=== PATIENT | male | born 1995 | race Caucasian/White ===

== ENCOUNTER 2022-04-26 07:18 | Emergency (ER) | payer OTHER, SELFPAY ==
[2022-04-26 07:22] VITALS: BP 136/68; PULSE 119; RESP 18; TEMP 37.3; O2SAT 97; BMI 33.5
--- NOTE | 2022-04-26 07:22 | ED_ITS ---
HPI - Fever General Chief Complaint: Upper Respiratory Symptoms Stated Complaint: Fever Chills Headache Time Seen by Provider: 04/26/22 07:21 Source: patient Mode of arrival: ambulatory Limitations: no limitations History of Present Illness HPI Narrative: One day of fever and chills. Patient also with headache and cough and nausea. MD elicited complaint: fever Onset (ago): day(s) Exacerbating factors: nothing Relieving factors: nothing Associated symptoms: chills, myalgias, headache, rhinorrhea, sore throat and cough Related Data Allergies Allergy/AdvReac Type Severity Reaction Status Date / Time No Known Allergies Allergy Verified 04/26/22 07:25 [No Known Allergies*] Review of Systems Review of Systems: Yes all other systems are reviewed and are negative Neurologic: Denies Sensory deficit (Neuro) [facility] Social History Social History Advance Directives: No Physical Exam Vital Signs: Vital Signs: Last Vital Signs Temp 99.2 F 04/26/22 07:33 Pulse 109 H 04/26/22 07:33 Resp 20 04/26/22 07:33 BP 139/74 04/26/22 07:33 Pulse Ox 99 04/26/22 07:33 O2 Del Method 04/26/22 07:33 BMI result Body Mass Index 33.5 Const: General: healthy appearing Nutritional Appearance: average body habitus Orientation/consciousness: oriented to person and patient oriented x3 Limitations: no limitations HEENT: Head: Yes normal to inspection Ears: external ears normal General nose exam: Normal external nose present Mouth: Normal oral and palatal mucosa present and oropharynx normal Throat: Yes posterior oropharynx normal Eyes: General: appearance normal, both eyes and all related structures Neck: Other: supple Neck: Yes normal visual inspection Chest: Chest palpation & inspection: normal inspection of the chest Resp: Auscultation: clear to auscultation bilaterally Cardio: Jugular venous distension: no JVD Rate: regular rate Rhythm: regular rhythm Heart sounds: S1 normal heart sound present and S2 normal heart sound present GI: Inspection: Yes normal to inspection Palpation (GI): Soft to palpation, nontender and No hepatosplenomegaly present Auscultation: normal bowel sounds : General: Yes no CVA tenderness Back/Spine/Pelvis: Back: no CVA tenderness Skin: General skin exam: no rashes or lesions noted Neuro: General: oriented to person and patient oriented x3 Cranial nerves: Yes CN's II-XII intact bilaterally Motor exam (neuro): 5/5 motor strength present throughout Sensory Exam: No Sensory deficit (Neuro) Extrem: General: Yes normal to inspection Psych: Appearance: grossly normal Course Reevaluation(s) Reevaluation #1: Patient with the flu will dc home Time: 08:41 Medications Administered Discontinued Medications Generic Name Dose Route Start Last Admin Trade Name Freq PRN Reason Stop Dose Admin Ibuprofen 800 mg 04/26/22 07:25 04/26/22 07:38 Ibuprofen 800 Mg Tablet PO 04/26/22 07:26 800 mg ONCE ONE Administration MDM - Fever Lab Data Labs: Lab Results 04/26/22 Range/Units 07:32 Influenza Type A (PCR) POSITIVE A (Negative) Influenza Type B (PCR) NEGATIVE (Negative) RSV RNA Qual (PCR) NEGATIVE (Negative) SARS-CoV-2 RNA (RT-PCR) NEGATIVE (Negative) Discharge Plan Discharge Clinical Impression: Influenza A Patient Disposition: Home, Self-Care Instructions: Influenza (ED) Referrals: Physician,Maryam J [Primary Care Provider] - 1 week
[2022-04-26 07:33] VITALS: BP 139/74; PULSE 109; RESP 20; TEMP 37.3; O2SAT 99
[2022-04-26] MEDS: Ibuprofen 800 MG TABLET PO (07:38)
--- OUTSIDE RECORDS SUMMARY | 2022-04-26 07:39 | XMS_ITS | Continuity of Care Document ---
:1995 Author Organization [facility] Address [address] [place] [address]- Care Team Providers Name Role Phone Not on Staff, PCP Primary Care Physician Unavailable Encounter [facility] Date(s): 07/29/19 - 08/05/19 [facility] [address] [place] [address]- [facility] Encounter Diagnosis Gastroenteritis (Discharge Diagnosis) - 07/29/19 Attending Physician: Valente Welsh MD Referring Physician: Valente Welsh MD Allergies, Adverse Reactions, Alerts Substance Reaction Severity Status NKA Active Medications Zofran 8 mg oral tablet 1 tablet = 8 mg, By Mouth, Every 8 hours, PRN Nausea & Vomiting, # 10 tablet, 0 Refills, Maintenance, 07/29/19 16:49:00 EST, Tablet, [id number], 172, cm, 07/29/19 16:13:00 EST, Height, 92, kg, 07/29/19 16:13:00 EST, Dry Weight Start Date: 07/29/19 Status: Ordered Problem List Diagnosis Diagnosis Type Effective Dates Health Status Clinical In formant Service Gastroenteritis Discharge 07/29/19 Diagnosis Vital Signs Most recent to oldest [Reference Range]: 1 Height 172 cm (07/29/19 4:13 PM) Weight 92.0 kg (07/29/19 4:13 PM) Oxygen Saturation [94-100 %] 98 % (07/29/19 4:13 PM) Pulse Rate [55-90 bpm] 91 bpm *H* (07/29/19 4:13 PM) Body Mass Index [18.5-24.99] 31.1 *>HHI* (07/29/19 4:13 PM) Blood Pressure [90-138/55-84 mm Hg] 143/72 mm Hg *H* (07/29/19 4:13 PM) Respiratory Rate [16-30 br/min] 19 br/min (07/29/19 4:13 PM) Temperature [96.8-100.4 DegF] 98.9 DegF (07/29/19 4:13 PM) Mode of Delivery (Oxygen) Room air (07/29/19 4:13 PM) Blood pressure sites Arm, right (07/29/19 4:13 PM) Temperature Route Oral (07/29/19 4:13 PM) Dry Weight 92.0 kg (07/29/19 4:13 PM) Weight Obtained Via Standing scale (07/29/19 4:13 PM) Dry Weight Obtained Via Standing scale (07/29/19 4:13 PM) Social History Social History Type Response Smoking Status Current some day smoker; Oth er: Marijuana on occasion; entered on: 12/23/17 Sex
--- OUTSIDE RECORDS SUMMARY | 2022-04-26 07:39 | XMS_ITS | Continuity of Care Document ---
:1995 Author Organization [facility] Address [address] [place] [address]- Care Team Providers Name Role Phone Not on Staff, PCP Primary Care Physician Unavailable Encounter [facility] Date(s): 07/29/19 - 08/08/19 [facility] [address] [place] [address]- [facility] Attending Physician: Amara Hudson Admitting Physician: AdmAmara umaña Referring Physician: Admtr, ArCrista Allergies, Adverse Reactions, Alerts Substance Reaction Severity Status NKA Active Medications Zofran 8 mg oral tablet 1 tablet = 8 mg, By Mouth, Every 8 hours, PRN Nausea & Vomiting, # 10 tablet, 0 Refills, Maintenance, 07/29/19 16:49:00 EST, Tablet, [facility] #[id number], 172, cm, 07/29/19 16:13:00 EST, Height, 92, kg, 07/29/19 16:13:00 EST, Dry Weight Start Date: 07/29/19 Status: Ordered Social History Social History Type Response Smoking Status Current some day smoker; Oth er: Marijuana on occasion; entered on: 12/23/17 Sex
--- OUTSIDE RECORDS SUMMARY | 2022-04-26 07:39 | XMS_ITS | Continuity of Care Document ---
:1995 Author Organization [facility] Address [address] [place] [address]- Care Team Providers Name Role Phone Not on Staff, PCP Primary Care Physician Unavailable Encounter [facility] Date(s): 07/10/21 - 07/10/21 [facility] [address] [place] [id number]- Encounter Diagnosis Gastroenteritis (Final) - 07/10/21 Nausea (Final) - 07/10/21 Vomiting (Final) - 07/10/21 Discharge Disposition: A-D/C Home Attending Physician: Brenda Coffman MD Admitting Physician: Brenda Coffman MD Referring Physician: Not on Staff, Referring MD Allergies, Adverse Reactions, Alerts No Known Allergies Medications Carafate 1 gm oral tablet 1 Gm, 1, tablet, By Mouth, 2 times a day, # 60 tablet, Refills 0, Tot. Refills 0, Maintenance, 07/10/21 23:36:00 EST, Route to Pharmacy Electronically, [facility] #[id number], Partial fill upon patient request if the prescription is for a schedul... Start Date: 07/10/21 Status: OrderedZofran 4 mg oral tablet 1 tablet = 4 mg, By Mouth, Every 8 hours, PRN Nausea & Vomiting, # 10 tablet, 0 Refills, Maintenance, 07/10/21 22:50:00 EST, Tablet, [facility] #[id number], Partial fill upon patient request if the prescription is for a schedule II opioid drug.,... Start Date: 07/10/21 Status: OrderedZofran 8 mg oral tablet 1 tablet = 8 mg, By Mouth, Every 8 hours, PRN Nausea & Vomiting, # 10 tablet, 0 Refills, Maintenance, 07/29/19 16:49:00 EST, Tablet, [facility] #[id number], 172, cm, 07/29/19 16:13:00 EST, Height, 92, kg, 07/29/19 16:13:00 EST, Dry Weight Start Date: 07/29/19 Status: Ordered Vital Signs Most recent to oldest [Reference 1 2 3 Range]: Oxygen Saturation [94-100 %] 99 % 99 % 99 % (07/10/21 10:25 PM) (07/10/21 8:52 PM) (07/10/21 7:16 PM) Pulse Rate [55-90 bpm] 88 bpm 98 bpm 111 bpm (07/10/21 10:25 PM) *H* *H* (07/10/21 8:52 PM) (07/10/21 7:16 PM ) Blood Pressure [90-138/55-84 mm 125/67 mm Hg 110/50 mm Hg 138/69 mm Hg Hg] (07/10/21 10:25 PM) (07/10/21 8:52 PM) (07/10/21 7:16 PM) Respiratory Rate [16-30 br/min] 18 br/min 20 br/min 20 br/min (07/10/21 10:25 PM) (07/10/21 8:52 PM) (07/10/21 7:16 PM) Temperature [96.8-100.4 DegF] 98.5 DegF (07/10/21 6:07 PM) Mode of Delivery (Oxygen) Room air Room air Room a ir (07/10/21 10:25 PM) (07/10/21 8:52 PM) (07/10/21 7:16 PM) Blood pressure sites Arm, left (07/10/21 6:07 PM) Temperature Route Oral (07/10/21 6:07 PM) Social History Social History Type Response Smoking Status Current some day smoker; Oth er: Marijuana on occasion; entered on: 12/23/17 Sex
[2022-04-26 08:17] LABS: Influenza A PCR POSITIVE (Negative); Influenza B PCR NEGATIVE (Negative); Resp Syncy Virus RNA Qual PCR NEGATIVE (Negative); SARS COV2 PCR INHOUSE NEGATIVE (Negative)
== END 2022-04-26 09:02 | disposition home or self-care (01) ==
PROVIDERS: Emergency Provider Emergency Medicine
DX: J10.1 Influenza due to other identified influenza virus with other respiratory manifestations (principal); R50.9 Fever, unspecified; R05.9 Cough, unspecified; R51.9 Headache, unspecified; M79.10 Myalgia, unspecified site; Z20.822 Contact with and (suspected) exposure to COVID-19
CPT/HCPCS: 0241U; 99283

== ENCOUNTER 2023-06-30 08:36 | Emergency (ER) | payer OTHER, SELFPAY ==
[2023-06-30 08:37] VITALS: BP 148/79; PULSE 98; RESP 18; TEMP 36.6; O2SAT 97; BMI 16.5
--- NOTE | 2023-06-30 08:52 | ED.GENADULT ---
HPI - General Adult General Chief complaint: General Medical Stated complaint: cold like symptoms Time Seen by Provider: 06/30/23 08:52 History of Present Illness HPI narrative: The patient is a 27-year-old male who is generally in good health. He has felt worse than usual over the last 2 days. He describes a right posterior headache associated with right ear pain and runny nose and a sore throat. He is felt hot and chilled but has had no definite fever. He feels lightheaded when he stands up. He has been taking DayQuil. No significant cough. No urinary symptoms. No abdominal pain. No nausea or vomiting. Related Data Previous Rx's Medication Instructions Recorded ibuprofen 600 mg tablet 600 mg PO Q6H PRN fever or pain 06/30/23 #20 tabs Allergies Allergy/AdvReac Type Severity Reaction Status Date / Time No Known Allergies Allergy Verified 06/30/23 08:41 [No Known Allergies*] Review of Systems Review of Systems: Yes all other systems are reviewed and are negative [facility] Social History Social History Advance Directives: No Physical Exam ED Vital Signs: Vital Signs - 24 hr 06/30/23 08:37 Temperature 97.9 F Pulse Rate 98 Respiratory Rate 18 Blood Pressure 148/79 H Pulse Oximetry 97 Oxygen Delivery Method Room Air BMI result Body Mass Index 16.5 Const Other: The patient is awake and alert. He is pleasant cooperative. He looks as if he is ordinarily in good health and does not appear obviously acutely ill today. HENMT Other: The appearance of the face is unremarkable. There is some generalized tenderness in the region of the right mastoid process. No erythema to the overlying skin. Tympanic membranes and ear canals are normal bilaterally. Pharynx shows minimal erythema. No asymmetry. Mucous membranes are moist. Ears: external ears normal, TM's normal bilaterally and EAC's normal Eyes General: appearance normal, both eyes and all related structures Alignment and Position: alignment normal Periorbital: periorbital findings normal Eyelids: Yes eyelids normal Conjunctivae: conjunctivae normal Pupils: Equal, round and reactive pupils present EOM: EOMs intact bilaterally Neck Other: The neck is supple. No discrete lymph nodes palpated Resp Effort & Inspection: normal respiratory effort Auscultation: clear to auscultation bilaterally Cardio Rate: regular rate Rhythm: regular rhythm Heart sounds: S1 normal heart sound present and S2 normal heart sound present Skin Other: Skin is warm and dry. No lesions. Neuro Other: The patient is awake, alert, oriented, appropriate. Demeanor is cheerful and pleasant. Neck is supple. Patient is grossly neurologically intact. Cranial nerves: Yes Equal, round and reactive pupils present Extrem Other: No peripheral edema Medications Administered Discontinued Medications Generic Name Dose Route Start Last Admin Trade Name Freq PRN Reason Stop Dose Admin Ibuprofen 600 mg 06/30/23 09:04 06/30/23 09:53 Ibuprofen 600 Mg Tablet PO 06/30/23 09:05 600 mg ONCE ONE Administration Medical Decision Making Medical Decision Making MDM Narrative: The patient is a 27-year-old male who presents with headache, sore throat, and congestion. His presentation is suggestive of viral syndrome. He has tested positive for RSV. He has 2 small children at home. He has been told that he needs to isolate himself from his small children so that he does not expose them to his viral illness. Otherwise he will be treated symptomatically. I have prescribed ibuprofen. He should stay in touch with his PCP's office. Lab Data Labs: Lab Results 06/30/23 Range/Units 09:14 Influenza Type A (PCR) NEGATIVE (Negative) Influenza Type B (PCR) NEGATIVE (Negative) RSV RNA Qual (PCR) POSITIVE A (Negative) SARS-CoV-2 RNA (RT-PCR) NEGATIVE (Negative) S. pyogenes GrpA CHARLY Negative (Negative) Discharge Plan Discharge Clinical Impression: Respiratory syncytial virus (RSV) Patient Disposition: Home, Self-Care Instructions: Respiratory Syncytial Virus (ED) Additional Instructions: You tested positive today for a virus called RSV (respiratory syncytial virus). There is no particular treatment for this virus. It essentially causes symptoms similar to the flu or a very bad cold. You may use ibuprofen and acetaminophen as needed for symptoms. I have sent a prescription for ibuprofen to your pharmacy. It is very important that you try to prevent your children from being exposed to you while you are ill. If small children develop RSV they can become more sick than grownups would get from RSV. Please stay in touch with your regular doctors office for additional advice as needed. Return to the emergency room if worse. Prescriptions: New ibuprofen 600 mg tablet 600 mg PO Q6H PRN (Reason: fever or pain) Qty: 20 0RF Referrals: Jaspal Canela MD [Physician] -
[2023-06-30 09:39] LABS: IDNOW Serial# 08D9AD1C; Strep A Nucleic Acid Negative (Negative)
[2023-06-30] MEDS: Ibuprofen 600 MG TABLET PO (09:53)
[2023-06-30 10:10] LABS: Influenza A PCR NEGATIVE (Negative); Influenza B PCR NEGATIVE (Negative); Resp Syncy Virus RNA Qual PCR POSITIVE (Negative); SARS COV2 PCR INHOUSE NEGATIVE (Negative)
[2023-06-30 11:26] VITALS: BP 141/79; PULSE 91; RESP 18; TEMP 37.1; O2SAT 96
== END 2023-06-30 11:36 | disposition home or self-care (01) ==
PROVIDERS: Emergency Provider Emergency Medicine
DX: R51.9 Headache, unspecified (principal); J02.9 Acute pharyngitis, unspecified; B97.4 Respiratory syncytial virus as the cause of diseases classified elsewhere; Z11.52 Encounter for screening for COVID-19; Z20.828 Contact with and (suspected) exposure to other viral communicable diseases
CPT/HCPCS: 0241U; 87651; 99283; 99284

== ENCOUNTER 2023-07-01 03:19 | Emergency (ER) | payer OTHER, SELFPAY ==
--- NOTE | ~2023-07-01 | CT_ITS ---
EXAMINATION: CT HEAD WITHOUT CONTRAST CLINICAL INFORMATION: Headache. COMPARISON: None available. TECHNIQUE: Contiguous axial imaging was performed from the skull base to vertex without intravenous administration of contrast. This CT examination was performed using dose optimization techniques as appropriate, variously including the following: *Automated exposure control *Adjustment of mA and/or kV according to patient size (this includes techniques or standardized protocols for targeted exams where dose is matched to indication/reason for exam; i.e. extremities or head) *Use of iterative reconstruction technique DLP: 1009.2 mGy-cm FINDINGS: There is no evidence of acute intracranial hemorrhage or territorial infarction. No abnormal mass-effect or midline shift is seen. Gregorio to white matter differentiation is well preserved. No extra-axial fluid collections are identified. The ventricles are normal in size. There is no abnormal attenuation within the brain parenchyma. The osseous structures and soft tissues are normal. There is opacification of several of the ethmoid air cells and mucosal thickening in the maxillary sinuses. The sphenoid sinus and mastoid air cells are well aerated. The frontal sinuses aplastic. The mastoid air cells and visualized portions of the paranasal sinuses are well-aerated. CT/CT head/brain wo IV con IMPRESSION: * No acute intracranial pathology. * Mild sinus disease.
[2023-07-01 03:27] VITALS: BP 146/93; PULSE 82; RESP 16; TEMP 36.7; O2SAT 96; BMI 35.9
[2023-07-01] MEDS: Ibuprofen 600 MG TABLET PO (04:44)
[2023-07-01 05:42] VITALS: BP 122/69; PULSE 96; RESP 17; TEMP 36.4; O2SAT 98
--- NOTE | 2023-07-01 07:35 | ED_ITS ---
HPI - Headache General Chief Complaint: Headache Stated Complaint: gen med Time Seen by Provider: 07/01/23 06:32 Source: patient and RN notes reviewed Mode of arrival: ambulatory Limitations: no limitations History of Present Illness HPI Narrative: This is a [id number]-male, with no known medical problems, emergency department with complaints of headache since last night. Patient was diagnosed with RSV yesterday. He states that he woke up this morning at 1:50 a.m. with a severe headache. He he endorses some blurry vision that lasted approximately 5 minutes. He states that after he had a protein bar his blurred vision has since resolved. He states that the headache continues worsened, he took Tylenol last night as well as Tylenol this morning which has provided him without any relief. He denies any fevers, chills, chest pain, shortness breast, abdominal pain, nausea, vomiting or diarrhea. Denies any weakness, numbness or tingling. He states that this headache is the worst headache of his life. No other complaints or concerns at this time. MD elicited complaint: migraine Related Data Previous Rx's Medication Instructions Recorded ibuprofen 600 mg tablet 600 mg PO Q6H PRN fever or pain 06/30/23 #20 tabs Allergies Allergy/AdvReac Type Severity Reaction Status Date / Time No Known Allergies Allergy Verified 07/01/23 03:32 [No Known Allergies*] Review of Systems Review of Systems: Yes all other systems are reviewed and are negative Constitutional: Constitutional: Reports as per [facility] Social History Social History Smoked in Last 30 Days: No Use of substances other than those prescribed or required for medical reasons: Yes Substance Use Type: Marijuana Substance Use Frequency: Chronic Longstanding Advance Directives: No Advance Directives Information Provided: No Physical Exam Vital Signs: Vital Signs: Last Vital Signs Temp 97.9 F 07/01/23 10:05 Pulse 73 07/01/23 10:05 Resp 18 07/01/23 10:05 BP 130/79 07/01/23 10:05 Pulse Ox 97 07/01/23 10:05 O2 Del Method Room Air 07/01/23 10:05 BMI result Body Mass Index 35.9 Const: General: cooperative, comfortable and no acute distress Orientation/consciousness: patient oriented x3 Limitations: no limitations HEENT: Other: No cervical midline spine tenderness, full range of motion of the neck sinuses nontender Head: Yes normal to inspection, Yes normocephalic and Yes atraumatic Ears: hearing grossly normal bilaterally and TM's normal bilaterally General nose exam: Normal external nose present Face and sinus: Yes normal facial exam Mouth: Normal oral and palatal mucosa present, oropharynx normal and moist mucous membranes Throat: Yes posterior oropharynx normal Eyes: General: appearance normal, both eyes and all related structures Eyelids: Yes eyelids normal Conjunctivae: conjunctivae normal Sclerae: sclerae normal Pupils: Equal, round and reactive pupils present EOM: EOMs intact bilaterally Neck: Neck: Yes normal visual inspection, Yes full ROM and Yes no lymphadenopathy Lymphatic: no lymphadenopathy noted Chest: Chest palpation & inspection: normal inspection of the chest Resp: Effort & Inspection: normal respiratory effort and able to speak in complete sentences Auscultation: clear to auscultation bilaterally, no crackles, no rales, no rhonchi and no wheezes Cardio: Rate: regular rate Rhythm: regular rhythm Heart sounds: S1 normal heart sound present and S2 normal heart sound present GI: Other: Abdomen is soft nontender Inspection: Yes normal to inspection Skin: General skin exam: no rashes or lesions noted Trauma: no lacerations or abrasions Wounds: no wounds Neuro: General: patient oriented x3 and moves all extremities Cranial nerves: Yes CN's II-XII intact bilaterally and Yes Equal, round and reactive pupils present Cognition (Neuro): normal cognition Gait exam (Neuro): Normal gait present Motor exam (neuro): 5/5 motor strength present throughout and Pronator motor function not present Coordination: [id number] test normal, [id number] test normal and tandem gait normal Romberg Test: Negative Extrem: General: Yes normal to inspection Right upper extremity: normal to inspection Left upper extremity: normal to inspection Right lower extremity: normal to inspection Left lower extremity: normal to inspection Course Reevaluation(s) Reevaluation #1: CT head returns, revealing sinus disease, without any acute abnormalities. Will medicate with migraine cocktail. He does have a ride home. Time: 09:32 Reevaluation #2: Patient feeling much better after receiving migraine cocktail, requesting to be discharged. Discussed return precautions. Patient is neurologically intact, vital signs stable, patient is stable for discharge. Time: 12:12 Medications Administered Discontinued Medications Generic Name Dose Route Start Last Admin Trade Name Dary PRN Reason Stop Dose Admin Diphenhydramine HCl 50 mg 07/01/23 09:32 07/01/23 10:10 Diphenhydramine Hcl 50 Mg/Ml Vial IVPUSH 07/01/23 09:33 Not Given ONCE ONE Sodium Chloride 1,000 mls @ 999 mls/hr 07/01/23 07:35 07/01/23 09:31 Ns IV 07/01/23 08:35 Infused .Q1H1M ONE Infusion Sodium Chloride 1,000 mls @ 999 mls/hr 07/01/23 09:33 07/01/23 10:33 Ns IV 07/01/23 10:33 999 mls/hr .Q1H1M ONE Administration Ibuprofen 600 mg 07/01/23 04:40 07/01/23 04:44 Ibuprofen 600 Mg Tablet PO 07/01/23 04:41 600 mg ONCE ONE Administration Ketorolac Tromethamine 15 mg 07/01/23 09:32 07/01/23 10:07 Ketorolac Tromethamine 15 Mg/Ml Vial IVPUSH 07/01/23 09:33 15 mg ONCE ONE Administration Metoclopramide HCl 10 mg 07/01/23 09:32 07/01/23 10:07 Metoclopramide Hcl 10 Mg/2 Ml Vial IVPUSH 07/01/23 09:33 10 mg ONCE ONE Administration Medical Decision Making Medical Decision Making MDM Narrative: This is a 27-year-old male presenting to the emergency department for evaluation of headache since last night. On arrival, blood pressure mildly elevated at 146/93. Patient is nontoxic appearing, patient has no neurologic findings however given patient reports that this is the worst headache of his life, will obtain CT head. Patient was already medicated with Motrin 600 mg by mouth prior to my assessment which did not provide him with any relief. He was diagnosed with RSV last night, likely cause of headache however will await further workup for re-evaluation. Plan: CT head, IV fluids, pending CT head, will medicate with migraine cocktail Differential Diagnosis Differential Diagnoses: The differential diagnosis associated with the presentation includes Migraine headache, tension headache, cluster headache, RSV, dehydration, ICH Admission/Observation Consideration of admission/observation: Escalation of care including admission/observation considered Independent Interpretation I performed an independent interpretation of an: CT Scan Interpretation: Reviewed and agree with radiology report Radiology Impression Discussion of test interpretation with radiology: I have reviewed the radiologist's reading. Radiologist Impression: EXAMINATION: CT HEAD WITHOUT CONTRAST CLINICAL INFORMATION: Headache. COMPARISON: None available. TECHNIQUE: Contiguous axial imaging was performed from the skull base to vertex without intravenous administration of contrast. This CT examination was performed using dose optimization techniques as appropriate, variously including the following: *Automated exposure control *Adjustment of mA and/or kV according to patient size (this includes techniques or standardized protocols for targeted exams where dose is matched to indication/reason for exam; i.e. extremities or head) *Use of iterative reconstruction technique DLP: 1009.2 mGy-cm FINDINGS: There is no evidence of acute intracranial hemorrhage or territorial infarction. No abnormal mass-effect or midline shift is seen. Gregorio to white matter differentiation is well preserved. No extra-axial fluid collections are identified. The ventricles are normal in size. There is no abnormal attenuation within the brain parenchyma. The osseous structures and soft tissues are normal. There is opacification of several of the ethmoid air cells and mucosal thickening in the maxillary sinuses. The sphenoid sinus and mastoid air cells are well aerated. The frontal sinuses aplastic. The mastoid air cells and visualized portions of the paranasal sinuses are well-aerated. CT/CT head/brain wo IV con IMPRESSION: * No acute intracranial pathology. * Mild sinus disease. Dictated By: Casi Del Castillo MDEXAMINATION: CT HEAD WITHOUT CONTRAST CLINICAL INFORMATION: Headache. COMPARISON: None available. TECHNIQUE: Contiguous axial imaging was performed from the skull base to vertex without intravenous administration of contrast. This CT examination was performed using dose optimization techniques as appropriate, variously including the following: *Automated exposure control *Adjustment of mA and/or kV according to patient size (this includes techniques or standardized protocols for targeted exams where dose is matched to indication/reason for exam; i.e. extremities or head) *Use of iterative reconstruction technique DLP: 1009.2 mGy-cm FINDINGS: There is no evidence of acute intracranial hemorrhage or territorial infarction. No abnormal mass-effect or midline shift is seen. Gregorio to white matter differentiation is well preserved. No extra-axial fluid collections are identified. The ventricles are normal in size. There is no abnormal attenuation within the brain parenchyma. The osseous structures and soft tissues are normal. There is opacification of several of the ethmoid air cells and mucosal thickening in the maxillary sinuses. The sphenoid sinus and mastoid air cells are well aerated. The frontal sinuses aplastic. The mastoid air cells and visualized portions of the paranasal sinuses are well-aerated. CT/CT head/brain wo IV con IMPRESSION: * No acute intracranial pathology. * Mild sinus disease. Dictated By: Casi Del Castillo MD Prescription Management I considered prescription management with: Pain Medication Discharge Plan Discharge Clinical Impression: Headache, RSV infection Patient Disposition: Home, Self-Care Instructions: Acute Headache (ED) Additional Instructions: Your seen in the emergency department due to a headache. Your CT of your head was normal. Your symptoms are likely due to having the RSV virus. Please drink plenty of fluids get plenty of rest. Take ibuprofen and/or Tylenol as needed for pain If any new or worsening symptoms occur, including but not limited to weakness, worsening headache, chest pain or shortness a breath, please return for re- evaluation Prescriptions: No Action ibuprofen 600 mg tablet 600 mg PO Q6H PRN (Reason: fever or pain) Qty: 20 0RF Stand Alone Forms: Work/School Release Interventions: ED Discharge Assessment Last Done: 07/01/23 12:35 Discharge Date/Time: 07/01/23 12:36
[2023-07-01 07:45] VITALS: BP 136/67; PULSE 73; RESP 16; TEMP 36.8; O2SAT 97
--- NOTE | 2023-07-01 07:47 | PC.NURSE ---
Pt awake, alert and oriented. Breathing even and unlabored. Skin warm and dry. RSV+. Pt reports headache since on right side on head, 5/10 at this time, pounding and sharp. Pt reports blurry vision this morning that has resolved. Pt neg for slurred speech or unilateral weakness. Pt denies CP, N/V/D, ABD pain. Pt reports some improvements in headache after IBU this morining.
[2023-07-01] MEDS: 0.9 % Sodium Chloride 1,000 ML 999 ML IV ×2 (07:55→10:33)
--- NOTE | 2023-07-01 08:06 | PC.NURSE ---
IV established in the left AC 20G. NS bolus infusing. Pt taken to CT scan
[2023-07-01 10:05] VITALS: BP 130/79; PULSE 73; RESP 18; TEMP 36.6; O2SAT 97
[2023-07-01] MEDS: Ketorolac Tromethamine 15 MG/ML VIAL IVPUSH (10:07)
[2023-07-01] MEDS: Metoclopramide HCl 10 MG/2 ML VIAL IVPUSH (10:07)
--- NOTE | 2023-07-01 10:11 | PC.NURSE ---
Addendum entered by [place] Schneider 07/01/23 10:16: Pt refused Benadryl. Original Note: Pt alert and oriented, reports feeling better overall, pain 3/10 headache. No new complaints. Medicated per AUG.
== END 2023-07-01 12:36 | disposition home or self-care (01) ==
PROVIDERS: Emergency Provider Emergency Medicine Emergency Medical Services
DX: R51.9 Headache, unspecified (principal); B97.4 Respiratory syncytial virus as the cause of diseases classified elsewhere; H53.8 Other visual disturbances; J32.9 Chronic sinusitis, unspecified
CPT/HCPCS: 70450; 96361; 96374; 96375; 99284; 99285; J1885; J2765

== ENCOUNTER 2024-01-09 17:25 | Emergency (ER) | payer OTHER, SELFPAY ==
[2024-01-09 17:36] VITALS: BP 144/86; PULSE 76; RESP 20; TEMP 36.9; O2SAT 97; BMI 34.9
--- NOTE | 2024-01-09 17:58 | ED.SKABFB ---
HPI - Skin/Abscess/Foreign Bdy General Chief complaint: Skin/Abscess/Foreign Body Stated complaint: allergic reaction to a chemical at work Time Seen by Provider: 01/09/24 17:50 Source: patient, RN notes reviewed and old records reviewed Mode of arrival: ambulatory History of Present Illness ED Provider: Natalie Garcia PA-C HPI narrative: 28-year-old male no significant past medical history presenting to the ED complaining pruritic erythematous bumps to left forearm s/p cleaning out bins of chemicals at work that had copper and nickel in them they got onto skin. Admits to applying cortisone at work with improvement in symptoms. Denies SOB, throat closing sensation, wheezing, rash to other area, known allergens or other new exposures Related Data Previous Rx's ?Medication ?Instructions ?Recorded ibuprofen 600 mg tablet 600 mg PO Q6H PRN fever or pain 06/30/23 #20 tabs hydrocortisone 1 % topical cream 1 appl topical TID PRN rash #28.35 01/09/24 grams Allergies Allergy/AdvReac Type Severity Reaction Status Date / Time No Known Allergies Allergy Verified 01/09/24 17:38 [No Known Allergies*] Review of Systems Review of Systems: Constitutional: No Fever, No Chills ENT/Mouth: No Nasal Congestion, No Sinus Pain, No Hoarseness, No sore throat, No Rhinorrhea, No Swallowing Difficulty Cardiovascular: No Chest Pain, No SOB Respiratory: No Cough, No Sputum, No Wheezing Gastrointestinal: No Nausea, No Vomiting, No Abdominal pain Musculoskeletal: No joint pain, No Myalgias, No Joint Swelling Skin: No Skin Lesions, + rash Neuro: No Weakness Yes all other systems are reviewed and are negative Constitutional: Constitutional: Reports as per [facility] Past Medical History Attestation statement: The following information was validated with the patient. Source: old records reviewed Social History Social History Substance Use Type: Marijuana Advance Directives: No Advance Directives Information Provided: No Physical Exam Vital Signs: Vital Signs: Last Vital Signs Temp 98.4 F 01/09/24 17:36 Pulse 76 01/09/24 17:36 Resp 20 01/09/24 17:36 BP 144/86 H 01/09/24 17:36 Pulse Ox 97 01/09/24 17:36 O2 Del Method Room Air 01/09/24 17:36 BMI result Body Mass Index 34.9 Const: General: cooperative, healthy appearing and no acute distress Orientation/consciousness: patient oriented x3 Limitations: no limitations HEENT: Head: Yes normal to inspection and Yes atraumatic Ears: hearing grossly normal bilaterally General nose exam: Normal external nose present Face and sinus: Yes normal facial exam Throat: Yes posterior oropharynx normal, Yes tonsils normal, Yes uvula midline and No uvular edema Eyes: General: appearance normal, both eyes and all related structures EOM: EOMs intact bilaterally Neck: Neck: Yes normal visual inspection and Yes no meningeal signs Resp: Effort & Inspection: normal respiratory effort and no respiratory distress Cardio: Rate: regular rate Skin: Other: + small erythematous papules noted to left forearm volar aspect. Not circumferential. No fluctuance/induration. No sloughing. No hand involvement Wounds: no wounds Neuro: General: patient oriented x3, tone normal and no meningeal signs Cranial nerves: Yes CN's II-XII intact bilaterally Gait exam (Neuro): Normal gait present Extrem: General: Yes normal to inspection Medical Decision Making Medical Decision Making MDM Narrative: 28-year-old male no significant past medical history presenting to the ED complaining pruritic erythematous bumps to left forearm s/p cleaning out bins of chemicals at work that had copper and nickel in them they got onto skin. On exam vital signs stable, NAD, nontoxic appearing, physical exam as noted above. Concern for contact dermatitis vs localized allergic reaction. No evidence of anaphylaxis or sloughing. No evidence of SJS/TENS Plan: Topical hydrocortisone, PCP follow-up Please refer to course for remaining clinical decision making, interpretation of labs/imaging results, and discussions with consultants and/or family members. Differential Diagnosis Differential Diagnoses: The differential diagnosis associated with the presentation includes As above Independent Historian Clinical information obtained from an independent historian. History obtained from or confirmed by: Other External Record Review External record reviewed: Inpatient record, Office record, Outpatient record, Prior outpatient labs, Prior outpatient radiology, Primary care record and Outside ED record Tests considered The following testing was considered but not selected: As above Prescription Management I considered prescription management with: Other Discharge Plan Discharge Clinical Impression: Contact dermatitis Patient Disposition: Home, Self-Care Instructions: Contact Dermatitis (DC) Additional Instructions: Please apply topical hydrocortisone to rash. Avoid application to face, hands, feet and genital region If rash spreads or worsens, you develop any shortness of breath, throat closing sensation return to the ED Follow-up with your doctor Prescriptions: New hydrocortisone 1 % cream 1 appl topical TID PRN (Reason: rash) Qty: 28.35 0RF No Action ibuprofen 600 mg tablet 600 mg PO Q6H PRN (Reason: fever or pain) Qty: 20 0RF Referrals: Physician,Unknown J [Primary Care Provider] - Stand Alone Forms: Work/School Release Print Language: [place]
[2024-01-09 18:08] VITALS: BP 144/86; PULSE 76; RESP 20; TEMP 36.9; O2SAT 97
== END 2024-01-09 18:08 | disposition home or self-care (01) ==
PROVIDERS: Emergency Provider Student in an Organized Health Care Education/Training Program
DX: L24.89 Irritant contact dermatitis due to other agents (principal)
CPT/HCPCS: 99282; 99283